=== PATIENT | female | born 1965 | race Hispanic/Latino ===

== ENCOUNTER 2021-01-23 00:41 | Emergency (ER) | payer OTHER ==
[~2021-01-23] VITALS: Ht 157.5 cm; Wt 58.1 kg
[2021-01-23] MEDS ORDERED: TRIMETHOPRIM/SULFAMETHOXAZOLE 160-800 MG TAB PO ONE (01:00)
[2021-01-23] MEDS ORDERED: PHENAZOPYRIDINE HCL 100 MG TAB PO PRN (01:00)
[2021-01-23] MEDS ORDERED: PHENAZOPYRIDINE HCL 100 MG TAB ONE (01:07)
[2021-01-23 01:29] LABS: CLARITY,URINE CLEAR (CLEAR); COLOR,URINE YELLOW (YELLOW); KETONES,URINE NEGATIVE (NEGATIVE); LEUKOCYTE ESTERASE ,URINE 2+ (NEGATIVE); NITRITE,URINE NEGATIVE (NEGATIVE); PROTEIN,URINE DIPSTICK NEGATIVE (NEGATIVE); URINE UROBILINOGEN 0.2 mg/dL (0.2 - 1)
[2021-01-23 01:37] LABS: BACTERIA,URINE MANY /HPF; EPITHELIAL CELLS,URINE FEW /LPF; RBC,URINE >50 /HPF (0-5); RENAL EPITHELIAL CELLS,URINE FEW; WBC,URINE (MAN) >50 /HPF (0-5)
[2021-01-23] MEDS ORDERED: CEPHALEXIN500 MG PO (01:42)
[2021-01-23] MEDS ORDERED: PYRIDIUM100 MG PO (01:43)
[2021-01-23 03:04] VITALS: BP 114/71
== END 2021-01-23 03:09 | disposition home or self-care (01) ==
LOC: ER 00:50
DX: R30.0 Dysuria (principal); N39.0 Urinary tract infection, site not specified; R50.9 Fever, unspecified
CPT/HCPCS: 81001; 87086; 99283